=== PATIENT | female | born 1970 | race Caucasian/White ===

== ENCOUNTER 2016-11-14 05:47 | Emergency (ER) | payer OTHER ==
[2016-11-14 06:49] LABS: APPEARANCE,URINE CLOUDY; BILIRUBIN,URINE NEGATIVE (NEGATIVE); GLUCOSE, URINE 50 mg/dL (NEGATIVE); KETONES,URINE TRACE mg/dL (NEGATIVE); LEUKOCYTE ESTERASE,URINE LARGE (NEGATIVE); NITRITE,URINE NEGATIVE (NEGATIVE); PROTEIN,URINE 30 mg/dL (NEGATIVE); URINE SPECIFIC GRAVITY 1.025; UROBILINOGEN,URINE NEGATIVE mg/dL (<2.0)
[2016-11-14] MEDS ORDERED: CIPROFLOXACIN HCL 500 MG TABLET PO ONE (07:54)
--- NOTE | 2016-11-14 09:55 | ER Document Report ---
ED General - General Chief Complaint: Urinary Problem Stated Complaint: URINARY PAIN TRAVEL OUTSIDE OF THE [place] IN LAST 30 DAYS: No - HPI Patient complains to provider of: dysuria Notes: Patient coming in with dysuria ongoing for the last 5 days. Patient also states pain started in her right flank now loaded in the right lower quadrant. Patient denies fevers chills nausea vomiting diarrhea. Patient states this is similar to her UTI in the past however pain is worse. Denies any hematuria patient states recently just was off her menstrual cycle. - Related Data Allergies/Adverse Reactions: erythromycin base Allergy (Verified 11/14/16 06:09) Past Medical History - Social History Smoking Status: Current Every Day Smoker Chew tobacco use (# tins/day): No Frequency of alcohol use: Rare Drug Abuse: None Family History: None Patient has suicidal ideation: No Patient has homicidal ideation: No Past Surgical History: Reports: Hx Section Review of Systems - Review of Systems Constitutional: No symptoms reported EENT: No symptoms reported Cardiovascular: No symptoms reported Respiratory: No symptoms reported Gastrointestinal: No symptoms reported Genitourinary: Dysuria Female Genitourinary: No symptoms reported Musculoskeletal: No symptoms reported Skin: No symptoms reported Hematologic/Lymphatic: No symptoms reported Neurological/Psychological: No symptoms reported -: Yes All other systems reviewed and negative Physical Exam - Vital signs Vitals: Temp Pulse Resp BP Pulse Ox 98 F 113 H 18 125/94 H 98 11/14/16 06:09 11/14/16 06:09 11/14/16 06:09 11/14/16 06:09 11/14/16 06:09 Interpretation: Normal - General General appearance: Appears well, Alert - HEENT Head: Normocephalic, Atraumatic Eyes: Normal Pupils: PERRL - Respiratory Respiratory status: No respiratory distress Chest status: Nontender Breath sounds: Normal Chest palpation: Normal - Cardiovascular Rhythm: Regular Heart sounds: Normal auscultation Murmur: No - Abdominal Inspection: Normal Distension: No distension Bowel sounds: Normal Tenderness: Nontender Organomegaly: No organomegaly - Back Back: Normal, Nontender - Extremities General upper extremity: Normal inspection, Nontender, Normal color, Normal ROM , Normal temperature General lower extremity: Normal inspection, Nontender, Normal color, Normal ROM , Normal temperature, Normal weight bearing. No: Don's sign - Neurological Neuro grossly intact: Yes Cognition: Normal Orientation: AAOx4 [place] Coma Scale Eye Opening: Spontaneous [place] Coma Scale Verbal: Oriented Kate Coma Scale Motor: Obeys Commands [place] Coma Scale Total: 15 Speech: Normal Motor strength normal: LUE, RUE, LLE, RLE Sensory: Normal - Psychological Associated symptoms: Normal affect, Normal mood - Skin Skin Temperature: Warm Skin Moisture: Dry Skin Color: Normal Course - Re-evaluation Re-evalutation: 11/14/16 15:39 Patient urinalysis shows some erythema hematuria. Concern for possible in urinary tract infection along with kidney stone therefore CT scan was performed showing no kidney stones in for right adrenal cyst. Did discuss results and give a copy of the CT scan results with the patient. Otherwise patient has a on comp care UTI patient will be given antibiotics guardian discharged home - Vital Signs Vital signs: Temp Pulse Resp BP Pulse Ox 98.2 F 90 16 132/89 H 98 11/14/16 10:17 11/14/16 10:17 11/14/16 10:17 11/14/16 10:17 11/14/16 10:17 - Laboratory Laboratory results interpreted by me: 11/14/16 06:05 Urine Protein 30 H Urine Glucose (UA) 50 H Urine Ketones TRACE H Urine Blood LARGE H Ur Leukocyte Esterase LARGE H Discharge - Discharge Clinical Impression: UTI (urinary tract infection) Qualifiers: Urinary tract infection type: site unspecified Hematuria presence: with hematuria Qualified Code(s): N39.0 - Urinary tract infection, site not specified Condition: Good Disposition: HOME, SELF-CARE Instructions: Urinary Anesthetic Agent ([facility]), Urinary Tract Infection ([facility]), Ciprofloxacin ([facility]) Additional Instructions: Take medication as prescribed. Return to the ER symptoms worsen. Your CAT scan shows a right adrenal cyst this of dyspnea be followed by your primary care physician. Prescriptions: Ciprofloxacin HCl [Cipro 500 mg Tablet] 500 mg PO BID #20 tablet Phenazopyridine HCl [Pyridium 100 Mg Tablet] 100 mg PO TID #15 tablet Referrals: ARMANDO JONES MD [Primary Care Provider] - Follow up in 3-5 days
[2016-11-14 10:19] VITALS: BP 132/89
== END 2016-11-14 10:17 | disposition home or self-care (01) ==
LOC: ER 05:47
DX: N39.0 Urinary tract infection, site not specified (principal); R39.198 Other difficulties with micturition; R30.9 Painful micturition, unspecified; F17.210 Nicotine dependence, cigarettes, uncomplicated; R30.0 Dysuria
CPT/HCPCS: 76380; 81001; 87086; 87088; 87186; 99284

== ENCOUNTER 2018-06-12 07:45 | Day surgery (SDC) | payer OTHER ==
[2018-06-12] MEDS ORDERED: PROPOFOL INJ 200 MG/20 ML VIAL IV ONE (09:56)
[2018-06-12] MEDS ORDERED: MIDAZOLAM 2 MG/2 ML INJ ONE (09:56)
[2018-06-12] MEDS ORDERED: MEPERIDINE HCL/PF INJ 25 MG/1 ML DISP.SYRIN IV PRN (10:22)
[2018-06-12] MEDS ORDERED: OXYCODONE-ACETAMINOPHEN 5-325 MG TABLET PO PRN ×2 (10:22)
[2018-06-12] MEDS ORDERED: FENTANYL CITRATE INJ/PF 100 MCG/2 ML AMPUL IV PRN ×3 (10:22)
[2018-06-12] MEDS ORDERED: PROMETHAZINE HCL INJ 25 MG/1 ML VIAL IV PRN ×2 (10:22)
[2018-06-12] MEDS ORDERED: DIPHENHYDRAMINE HCL 50 MG/ML VIAL IV PRN (10:22)
--- NOTE | 2018-06-12 10:41 | Operative Report ---
Operative Report DATE OF SURGERY: 06/12/18 Operative Report: The risks, benefits and alternatives of the procedure including risks of bleeding, perforation requiring surgery are explained to the patient in detail and informed consent is obtained. The patient is brought back to the operating room and placed in the left, lateral decubital position. Propofol medication is administered. Timeout was called. An Olympus videoscope was inserted into the patient's rectum. It is carefully advanced all the way to the cecum. Prep is good. Patient has a somewhat redundant colon. The scope was advanced into the terminal ileum. The scope was then sequentially pulled back. Tubular and concentric views of the colon are obtained retroflexion maneuvers performed. PREOPERATIVE DIAGNOSIS: Colorectal cancer screening POSTOPERATIVE DIAGNOSIS: Mild terminal ileitis status post biopsy. An area of scarring/possible finding of pseudopolyps in the area of the hepatic flexure/ proximal transverse colon. Differential would be active colitis; but more likely patient did have an area of inflammation and this represents scarring and the findings of pseudopolyps. We will wait on the biopsy. Internal hemorrhoids OPERATION: Colonoscopy with biopsy SURGEON: YASMIN HENRY ANESTHESIA: LMAC TISSUE REMOVED OR ALTERED: As noted above. COMPLICATIONS: None. ESTIMATED BLOOD LOSS: None. INTRAOPERATIVE FINDINGS: As noted above. PROCEDURE: Patient tolerated the procedure well. No immediate postprocedure complications are noted. Patient discharged in good condition. Discharge date 06/12/2018. Discharge diet: Regular. Discharge activity: Regular. 2-3 week follow-up to discuss findings. Patient is instructed to call the office or proceed to the emergency room should there be any further problems or questions. We will wait on pathology. If -5 year surveillance colonoscopy.
[2018-06-12] MEDS ORDERED: ACETAMINOPHEN 325 MG TABLET PO PRN (11:00)
[2018-06-12] MEDS ORDERED: SIMETHICONE 80 MG TAB.CHEW PO PRN (11:01)
[2018-06-12] MEDS ORDERED: PROMETHAZINE HCL INJ 25 MG/1 ML VIAL INJ PRN (11:01)
[2018-06-12 11:30] VITALS: BP 150/85
== END 2018-06-12 11:32 | disposition home or self-care (01) ==
LOC: OROUT 07:45
PROVIDERS: ATTEND Internal Medicine Gastroenterology
DX: Z12.11 Encounter for screening for malignant neoplasm of colon (principal); K52.9 Noninfective gastroenteritis and colitis, unspecified; K51.40 Inflammatory polyps of colon without complications; K64.8 Other hemorrhoids; F17.210 Nicotine dependence, cigarettes, uncomplicated; E11.9 Type 2 diabetes mellitus without complications; K21.9 Gastro-esophageal reflux disease without esophagitis; E78.5 Hyperlipidemia, unspecified; Z79.899 Other long term (current) drug therapy; Z88.8 Allergy status to other drugs, medicaments and biological substances
CPT/HCPCS: 45380; 81025; 88305 ×2; J2250; J2704; 811

== ENCOUNTER 2018-10-18 17:11 | Emergency (ER) | payer OTHER ==
[2018-10-18] MEDS ORDERED: NORMAL SALINE 1000 ML 1,000 ML IV ONE (17:41)
[2018-10-18] MEDS ORDERED: LIDOCAINE 5% (700 MG) TRANSDERMAL ADH..PATCH TP ONE (17:41)
[2018-10-18] MEDS ORDERED: ONDANSETRON HCL INJ/PF 4 MG/2 ML SDV IV ONE (17:43)
[2018-10-18] MEDS ORDERED: METOCLOPRAMIDE HCL INJ/PF 10 MG/2 ML SDV IV ONE ×2 (17:44→18:25)
[2018-10-18] MEDS ORDERED: KETOROLAC TROMETHAMINE INJ/PF 30 MG/1 ML SDV IV ONE (17:44)
[2018-10-18 18:11] LABS: HEMOGLOBIN 15.9 g/dL (12.0-15.5); MEAN CORPUSCULAR HEMOGLOBIN 28.4 pg (27.0-33.4); MEAN CORPUSCULAR HGB CONC 33.9 g/dL (32.0-36.0); MEAN CORPUSCULAR VOLUME 84 fl (80-97); PLATELET COUNT 490 10^3/uL (150-450); RED BLOOD COUNT 5.61 10^6/uL (3.72-5.28); RED CELL DISTRIBUTION WIDTH 14.3 % (11.5-14.0); WHITE BLOOD COUNT 21.5 10^3/uL (4.0-10.5)
[2018-10-18] MEDS ORDERED: HYDROMORPHONE HCL INJ/PF 2 MG/ML AMPULE IV ONE (18:25)
[2018-10-18 18:27] LABS: ANION GAP 14 (5-19); BLOOD UREA NITROGEN 9 mg/dL (7-20); CARBON DIOXIDE 23 mmol/L (22-30); CHLORIDE 103 mmol/L (98-107); GLUCOSE 260 mg/dL (75-110); POTASSIUM 4.2 mmol/L (3.6-5.0); SODIUM 139.9 mmol/L (137-145)
--- NOTE | 2018-10-18 18:27 | ER Document Report ---
ED General - General Chief Complaint: High Blood Pressure Stated Complaint: BP ISSUES Time Seen by Provider: 10/18/18 17:30 Mode of Arrival: Ambulatory Information source: Patient Notes: 48-year-old female with a history of migraine headaches, chronic back pain who presents to the emergency room with migraine headaches for the past week. Patient states that her blood pressure has been elevated. She was given Rizatriptan by an urgent care that she went a few days ago. She does mention that her blood pressure was elevated (sbp 155) at that time. She denies any fever, chills any recent illnesses. She does state it hurts in the back of her neck. She denies photophobia. Patient was seen in urgent care and referred because of the elevated blood pressure and headache. TRAVEL OUTSIDE OF THE [place] IN LAST 30 DAYS: No - HPI Onset: Last week Onset/Duration: Gradual Quality of pain: Dull Severity: Mild Pain Level: 1 Associated symptoms: Other - Headache.. denies: Chest pain, Fever, Nausea, Shortness of breath Exacerbated by: Denies Relieved by: Denies Similar symptoms previously: Yes Recently seen / treated by doctor: Yes - Related Data Allergies/Adverse Reactions: erythromycin base Allergy (Verified 10/18/18 17:40) diphenhydramine [From Benadryl] Adverse Reaction (Verified 10/18/18 17:40) RESTLESS LEGS promethazine [From Phenergan] Adverse Reaction (Verified 10/18/18 17:40) Change in behavior Past Medical History - General Information source: Patient - Social History Smoking Status: Unknown if Ever Smoked Cigarette use (# per day): No Chew tobacco use (# tins/day): No Frequency of alcohol use: Occasional Drug Abuse: None Lives with: Spouse/Significant other Family History: None Patient has suicidal ideation: No Patient has homicidal ideation: No - Past Medical History Cardiac Medical History: Denies: Hx Coronary Artery Disease, Hx Heart Attack, Hx Hypertension Pulmonary Medical History: Denies: Hx Asthma, Hx Bronchitis, Hx COPD, Hx Pneumonia Neurological Medical History: Denies: Hx Cerebrovascular Accident, Hx Seizures Endocrine Medical History: Denies: Hx Diabetes Mellitus Type 2 - Prediabetes Renal/ Medical History: Denies: Hx Peritoneal Dialysis Musculoskeletal Medical History: Denies Hx Arthritis Past Surgical History: Reports: Hx Section - Immunizations Hx Diphtheria, Pertussis, Tetanus Vaccination: Yes Review of Systems - Review of Systems Constitutional: denies: Chills, Fever EENT: No symptoms reported Cardiovascular: denies: Chest pain, Palpitations, Heart racing Respiratory: denies: Cough, Short of breath, Wheezing Gastrointestinal: denies: Abdominal pain, Diarrhea, Nausea, Vomiting Genitourinary: No symptoms reported Female Genitourinary: No symptoms reported Musculoskeletal: No symptoms reported Skin: No symptoms reported Hematologic/Lymphatic: No symptoms reported Neurological/Psychological: See HPI Physical Exam - Vital signs Vitals: Temp Pulse Resp BP Pulse Ox 98.2 F 100 18 166/108 H 99 10/18/18 17:18 10/18/18 17:18 10/18/18 17:18 10/18/18 17:18 10/18/18 17:18 Notes: Physical exam: GENERAL: Patient is alert and oriented x3, no acute distress HEAD: Atraumatic, normocephalic. EYES: Pupils equal round and reactive to light, extraocular movements intact, sclera anicteric, conjunctiva are normal. ENT: TMs normal, nares patent, oropharynx clear without exudates. Moist mucous membranes. NECK: Normal range of motion, supple without obvious mass or JVD. LUNGS: Breath sounds clear to auscultation bilaterally and equal. No wheezes rales or rhonchi. HEART: Regular rate and rhythm without murmurs, rubs or gallops. ABDOMEN: Soft, normoactive bowel sounds. No tenderness to palpation. No guarding, no rebound. No masses appreciated. EXTREMITIES: Normal range of motion, no pitting or edema. No clubbing or cyanosis. NEUROLOGICAL: Cranial nerves II through XII grossly intact. Normal speech, moving all extremities. Motor 5/5, sensory grossly intact. PSYCH: Normal mood, normal affect. SKIN: Warm, Dry, normal turgor, no rashes or lesions noted. Course - Re-evaluation Re-evalutation: 10/18/18 19:55 On reassessment of the patient, she states that her headache is gone. Her blood pressure is actually 118/71 which is significantly improved. She has been afebrile all along. She states her neck pain is much better and she is moving her head from side to side. She denies any photophobia. Her head CT was negative. Of significance with her labs is that she has a leukocytosis of 21,000. I did have a long conversation about this with her. She does have a history of leukocytosis and states that she was worked up with a bone marrow biopsy several years ago. This historical information is important because she does not have any clinical evidence of meningitis. She looks good right now. She was given some pain medicine but not that much. I have given her good instructions that if the headache gets worse or if she starts getting fever or rash, she should return immediately. Otherwise I want her to follow-up with her primary care doctor (Dr. Jones) and I will give her a copy of today's labs. The second lab of concern is that her sugar was elevated. She does have a history of having an elevated sugar and was treated with metformin in the past and ultimately was taken off because her sugar normalized. In any event, I think she should be on metformin again and I have offered to give her a prescription but she would like to hold off. Finally, as far as the elevated blood pressure, her blood pressure is down right now after we treated her headache. She did not get any relief from the medicine that she was on. I will send her on a short course of anti-emetics and pain medicine. 10/18/18 19:58 - Vital Signs Vital signs: Temp Pulse Resp BP Pulse Ox 97 F L 100 14 152/83 H 98 10/18/18 20:29 10/18/18 17:18 10/18/18 20:09 10/18/18 20:09 10/18/18 20:09 - Laboratory Result Diagrams: 10/18/18 18:00 10/18/18 18:00 Laboratory results interpreted by me: 10/18/18 10/18/18 10/18/18 17:30 18:00 18:00 WBC 21.5 H RBC 5.61 H Hgb 15.9 H RDW 14.3 H Plt Count 490 H Abs Neuts (Manual) 14.2 H Abs Lymphs (Manual) 6.0 H Glucose 260 H POC Glucose 240 H Hemoglobin A1c % 10/18/18 18:00 WBC RBC Hgb RDW Plt Count Abs Neuts (Manual) Abs Lymphs (Manual) Glucose POC Glucose Hemoglobin A1c % 9.6 H - Diagnostic Test Radiology reviewed: Image reviewed, Reports reviewed - CT of the head showed no acute bleed. - EKG Interpretation by Me Rate: Normal Rhythm: NSR - EKG shows sinus rhythm with a ventricular rate of 97, no acute ST- T wave changes Discharge - Discharge Clinical Impression: Headache, Hypertension, Hyperglycemia Condition: Stable Disposition: HOME, SELF-CARE Additional Instructions: As we discussed, the head CT showed no evidence of bleed. Clinically, you do not have evidence of meningitis at this time. Your white blood count was 21K (normal being 5-10K) and this should be compared to previous values. I would let Dr. Jones know that you have had an evaluation for leukocytosis with a bone marrow biopsy in the past. I do believe he should be on metformin again and I would bring a copy of these labs to Dr. Jones. Also, your blood pressure will need to be followed. Have been elevated lately. Your blood pressure prior to discharge was quite good. The medicines as prescribed. The pain medicine you're taking prescribed as a narcotic. There are several important things you should know about this medicine: 1. This medicine contains Tylenol: It is important that you do not take Tylenol (or acetaminophen) while on this medicine. Tylenol is metabolized by the liver and taking too much Tylenol (acetaminophen) can lay to liver damage and even liver failure. 2. Taking narcotics for too long can lead to physical and mental dependence. Take this medicine only if really needed and in the lowest quantity to achieve pain relief. 3. Do not drink alcohol while on this medicine. Alcohol interacts with narcotics and the combination can be dangerous. 4. Do not drive or operate machinery while on this medicine. 5. Narcotics do cause constipation, so drink plenty of fluids and daily stool softeners. Prescriptions: Hydrocodone/Acetaminophen [[place] 5-325 mg Tablet] 1 tab PO Q6HP PRN #20 tablet PRN Reason: Metoclopramide HCl [Reglan 10 mg Tablet] 1 - 2 tab PO ASDIR PRN #14 tablet PRN Reason: Referrals: ARMANDO JONES MD [Primary Care Provider] - Follow up tomorrow
[2018-10-18 18:29] LABS: ABSOLUTE MONOCYTES # (MANUAL) 1.3 10^3/uL (0.1-1.4); ABSOLUTE NEUTROPHILS# (MANUAL) 14.2 10^3/uL (1.7-8.2); BASOPHILS % (MANUAL) 0 % (0-2); EOSINOPHILS % (MANUAL) 0 % (0-6); LYMPHOCYTES % (MANUAL) 28 % (13-45); MONOCYTES % (MANUAL) 6 % (3-13); SEGMENTED NEUTROPHILS % (MAN) 66 % (42-78); TOTAL CELLS COUNTED 100
[2018-10-18 18:30] LABS: PLATELET COMMENT INCREASED; TOXIC GRANULATION 1+; TOXIC VACUOLATION PRESENT
--- NOTE | 2018-10-18 19:11 | RADIOLOGY REPORT (SQ) ---
EXAM DESCRIPTION: CT HEAD WITHOUT COMPLETED DATE/TIME: 10/18/2018 7:01 pm REASON FOR STUDY: bass, elevated BP COMPARISON: None. TECHNIQUE: Axial images acquired through the brain without intravenous contrast. Images reviewed wi th bone, brain and subdural windows. Additional sagittal and coronal reconstructions were generated. Images stored on PACS. All CT scanners at this facility use dose modulation, iterative reconstruction, and/or weight based d osing when appropriate to reduce radiation dose to as low as reasonably achievable (ALARA). [facility]: Dose Right [facility]: CareDose [facility]: Dose Right [facility]: Teradose 4D [facility]: [employer] RADIATION DOSE: CT Rad equipment meets quality standard of care and radiation dose reduction techniq ues were employed. CTDIvol: 53.2 mGy. DLP: 1070 mGy-cm. mGy. LIMITATIONS: None. FINDINGS: VENTRICLES: Normal size and contour. CEREBRUM: No masses. No hemorrhage. No midline shift. No evidence for acute infarction. Normal gra y/white matter differentiation. No areas of low density in the white matter. CEREBELLUM: No masses. No hemorrhage. No alteration of density. No evidence for acute infarction. EXTRAAXIAL SPACES: No fluid collections. No masses. ORBITS AND GLOBE: No intra- or extraconal masses. Normal contour of globe without masses. CALVARIUM: No fracture. PARANASAL SINUSES: Bilateral maxillary sinus disease. SOFT TISSUES: No mass or hematoma. OTHER: No other significant finding. IMPRESSION: NORMAL BRAIN CT WITHOUT CONTRAST. EVIDENCE OF ACUTE STROKE: NO. COMMENT: Quality ID # [id number]: Final reports with documentation of one or more dose reduction techniques (e.g., Automated exposure control, adjustment of the mA and/or kV according to patient size, use of iterative reconstruction technique) TECHNICAL DOCUMENTATION: JOB ID: [id number] [employer]- All Rights Reserved Reading location - IP/workstation name: [email or web address]
[2018-10-18] MEDS ORDERED: HYDROCODONE/ACETAMINOPHEN 5-325 MG (6 TAB/ER DISP) PO PRN (20:10)
[2018-10-18] MEDS ORDERED: ONDANSETRON ODT 4 MG TAB (6 TAB/ER DISP) PO PRN (20:11)
[2018-10-18 20:29] VITALS: BP 152/83
--- NOTE | 2018-10-18 22:17 | EKG REPORT ---
SEVERITY:- NORMAL ECG - SINUS RHYTHM : Confirmed by: Opal Epps 18-Oct-2018 22:15:38
== END 2018-10-18 20:29 | disposition home or self-care (01) ==
LOC: ER 17:11
DX: R51 Headache (principal); I10 Essential (primary) hypertension; R73.9 Hyperglycemia, unspecified; M54.2 Cervicalgia; M54.9 Dorsalgia, unspecified; G89.29 Other chronic pain; Z79.899 Other long term (current) drug therapy
CPT/HCPCS: 93005; 96376; 99284; 96361; 96374; 96375; 36415; 82962; 85025; 80048; 84484; 83036; 70450; 93010; J1885; J2765; J1170; J2405; J7030